=== PATIENT | male | born 1970 | race Caucasian/White ===

== ENCOUNTER 2018-09-03 13:40 | Inpatient (IN) ==
[2018-09-03] MEDS ORDERED: ALBUTEROL/IPRATROPIUM 3 ML NEB RESP TX STA (14:34)
[2018-09-03] MEDS ORDERED: FUROSEMIDE 40 MG/4 ML VIAL IV STA (14:34)
[2018-09-03 15:27] LABS: Albumin 3.8 G/DL (3.4-5.0); Bilirubin,Total 0.5 MG/DL (0.2-1.0); Calcium 8.8 MG/DL (8.5-10.1); Osmolality,Calculated 281.1 MOS/KG (273-304); Total Protein 6.9 G/DL (6.4-8.3)
[2018-09-03 15:46] LABS: Apearance,Urine CLEAR (Clear); Bilirubin,Urine Negative (Negative); Blood, Urine Negative (Negative); Glucose,Urine (UA) Negative (Negative); Ketones,Urine Negative (Negative); Mucus,Urine Occasional /LPF (Occasional); Nitrite,Urine Negative (Negative); Protein,Urine Negative; RBC,Urine <1 /HPF (0-4); Urine Color Straw (Yellow); Urine Specific Gravity 1.009 (1.001-1.035); Urine Urobilinogen < 2.0 EU/DL (0.2-1.0)
[2018-09-03 16:03] LABS: Basophils # 0.1 10*3/uL (0.0-0.2); Eosinophils # 0.2 10*3/uL (0.0-0.87); Eosinophils % 2.1 % (0.00-10.9); Hematocrit 42.7 VOL% (42.0-52.0); Hemoglobin 13.4 GM/DL (14.0-18.0); Immature Granulocytes % 0.3 %; Immature Granulocytes Absolute 0.02 #; Lymphocytes # 2.2 10*3/uL (1.4-4.0); Lymphocytes % 28.4 % (21.2-54.2); Mean Corpuscular HGB Conc 31.4 GM/DL (32-36); Mean Corpuscular Volume 90.1 FL (87-102); Mean Platelet Volume 12.6 FL (9.6-12.0); Monocytes % 7.5 % (1.7-12.7); Neutrophils % 60.7 % (38.7-73.9); Platelet Count 236 T/CUMM (130-400); Red Blood Count 4.74 MC/CUMM (3.8-5.5); Red Cell Distribution Width 15.1 % (9.3-17.3); White Blood Count 7.8 T/CUMM (4-12)
[2018-09-03] MEDS ORDERED: PROMETHAZINE 25 MG TABLET PO PRN (16:55)
[2018-09-03] MEDS ORDERED: MORPHINE 4 MG/1 ML VIAL IV PRN (16:55)
[2018-09-03] MEDS ORDERED: MAGNESIUM SULF RIDER 4 GM in PREMIX 1 EACH IV PRN (16:55)
[2018-09-03] MEDS ORDERED: ZALEPLON 5 MG CAPSULE PO PRN (16:55)
[2018-09-03] MEDS ORDERED: LACTULOSE 20 GM/30 ML UDCUP PO PRN (16:55)
[2018-09-03] MEDS ORDERED: NICOTINE 21 MG/24 HR PATCH TRANSDERM PRN (16:55)
[2018-09-03] MEDS ORDERED: guaiFENesin/DM ER 600-30 MG TABLET PO PRN (16:55)
[2018-09-03] MEDS ORDERED: diphenhydrAMINE CAP 25 MG CAPSULE PO PRN (16:55)
[2018-09-03] MEDS ORDERED: DOCUSATE SODIUM 100 MG CAPSULE PO PRN (16:55)
[2018-09-03] MEDS ORDERED: ONDANSETRON 4 MG/2 ML VIAL IV PRN (16:55)
[2018-09-03] MEDS ORDERED: ACETAMINOPHEN 325 MG TABLET PO PRN (16:55)
[2018-09-03] MEDS ORDERED: MAGNESIUM SULF RIDER 2 GM in PREMIX 1 EACH IV PRN ×2 (16:55→17:25)
[2018-09-03] MEDS ORDERED: ENOXAPARIN 40 MG/0.4 ML SYRINGE SUBCUT SCH (17:00)
[2018-09-03] MEDS ORDERED: diphenhydrAMINE CAP 25 MG CAPSULE PO ONE (17:25)
[2018-09-03] MEDS ORDERED: DIAZEPAM 5 MG TABLET PO ONE (17:25)
[2018-09-03] MEDS ORDERED: POTASSIUM CHLORIDE RIDER 10 MEQ in PREMIX 1 EACH IV PRN (17:25)
[2018-09-03 19:12] LABS: Apearance,Urine CLEAR (Clear); Bilirubin,Urine Negative (Negative); Blood, Urine Negative (Negative); Glucose,Urine (UA) Negative (Negative); Hyaline Casts,Urine 1 /LPF (0-3); Ketones,Urine Negative (Negative); Mucus,Urine Occasional /LPF (Occasional); Nitrite,Urine Negative (Negative); Protein,Urine Negative; RBC,Urine <1 /HPF (0-4); Urine Color Straw (Yellow); Urine Specific Gravity 1.006 (1.001-1.035); Urine Urobilinogen < 2.0 EU/DL (0.2-1.0)
[2018-09-03 19:19] LABS: Barbiturates Screen,Urine Negative (Negative); Benzodiazepines Screen,Urine Negative (Negative); Cannabinoid Screen,Urine Negative (Negative); Opiate Screen,Urine Negative (Negative); Phencyclidine Screen,Urine Negative (Negative)
[2018-09-03] MEDS: CARVEDILOL 3.125 MG TABLET PO SCH (21:02)
[2018-09-04 05:41] LABS: Basophils # 0.1 10*3/uL (0.0-0.2); Eosinophils # 0.2 10*3/uL (0.0-0.87); Eosinophils % 2.7 % (0.00-10.9); Hemoglobin 13.5 GM/DL (14.0-18.0); Immature Granulocytes % 0.3 %; Immature Granulocytes Absolute 0.02 #; Lymphocytes # 1.7 10*3/uL (1.4-4.0); Lymphocytes % 24.7 % (21.2-54.2); Mean Corpuscular HGB Conc 32.1 GM/DL (32-36); Mean Corpuscular Volume 88.8 FL (87-102); Mean Platelet Volume 12.2 FL (9.6-12.0); Monocytes % 7.7 % (1.7-12.7); Neutrophils % 63.6 % (38.7-73.9); Platelet Count 236 T/CUMM (130-400); Red Blood Count 4.73 MC/CUMM (3.8-5.5); Red Cell Distribution Width 15.1 % (9.3-17.3)
[2018-09-04] MEDS: SODIUM CHLORIDE 0.9% 1,000 ML IV SCH ×2 (06:12→15:14)
[2018-09-04 06:15] LABS: Osmolality,Calculated 282.3 MOS/KG (273-304); Risk Ratio 8.04; VLDL CHOLESTEROL 44.2 MG/DL
[2018-09-04 06:32] LABS: Troponin I < 0.015 NG/ML (0.00-0.045)
[2018-09-04] MEDS ORDERED: NITROGLYCERIN DRIP 50 MG/250 ML BOTTLE IV ONE (06:45)
[2018-09-04] MEDS ORDERED: LIDOCAINE 1% 20 ML VIAL ONE (06:45)
[2018-09-04] MEDS ORDERED: DIAZEPAM 5 MG TABLET PO ONE (06:45)
[2018-09-04] MEDS ORDERED: HEPARIN/NACL 0.9% 2 UNITS/ML 1,000 ML IV ONE (06:45)
[2018-09-04] MEDS ORDERED: VERAPAMIL 5 MG/2 ML VIAL ONE (06:45)
[2018-09-04] MEDS ORDERED: diphenhydrAMINE CAP 25 MG CAPSULE PO ONE (06:45)
[2018-09-04] MEDS: CARVEDILOL 3.125 MG TABLET PO SCH ×3 (06:46→20:51)
[2018-09-04] MEDS ORDERED: MIDAZOLAM 2 MG/2 ML VIAL ONE ×2 (07:19→08:03)
[2018-09-04] MEDS ORDERED: fentaNYL 100 MCG/2 ML VIAL ONE (07:19)
[2018-09-04] MEDS ORDERED: ASPIRIN CHEW 81 MG TABLET PO ONE (07:28)
[2018-09-04] MEDS ORDERED: ENOXAPARIN 60 MG/0.6 ML SYRINGE ONE (07:32)
[2018-09-04] MEDS: SPIRONOLACTONE 25 MG TABLET PO SCH (10:46)
[2018-09-04] MEDS: ASPIRIN EC 81 MG TABLET PO SCH (10:48)
[2018-09-04] MEDS: PANTOPRAZOLE 40 MG TABLET PO SCH (10:49)
[2018-09-04] MEDS: ASCORBIC ACID 500 MG TABLET PO SCH (20:51)
[2018-09-04] MEDS: FUROSEMIDE 40 MG/4 ML VIAL IV SCH (20:52)
[2018-09-05 04:54] LABS: Basophils # 0.1 10*3/uL (0.0-0.2); Basophils % 0.7 % (0.0-0.8); Eosinophils # 0.2 10*3/uL (0.0-0.87); Eosinophils % 2.7 % (0.00-10.9); Hematocrit 38.3 VOL% (42.0-52.0); Hemoglobin 12.3 GM/DL (14.0-18.0); Immature Granulocytes % 0.6 %; Immature Granulocytes Absolute 0.04 #; Lymphocytes # 1.7 10*3/uL (1.4-4.0); Lymphocytes % 23.8 % (21.2-54.2); Mean Corpuscular HGB Conc 32.1 GM/DL (32-36); Mean Corpuscular Volume 89.9 FL (87-102); Mean Platelet Volume 12.4 FL (9.6-12.0); Monocytes % 10.4 % (1.7-12.7); Neutrophils % 61.8 % (38.7-73.9); Platelet Count 206 T/CUMM (130-400); Red Blood Count 4.26 MC/CUMM (3.8-5.5); Red Cell Distribution Width 15.1 % (9.3-17.3); White Blood Count 7.1 T/CUMM (4-12)
[2018-09-05 05:22] LABS: Calcium 8.8 MG/DL (8.5-10.1); Osmolality,Calculated 285.1 MOS/KG (273-304)
[2018-09-05] MEDS: SACUBITRIL/VALSARTAN 49-51 MG TABLET PO SCH ×2 (08:52→21:07)
[2018-09-05] MEDS: POTASSIUM CHLORIDE 20 MEQ TABLET PO PRN ×2 (08:52→13:45)
[2018-09-05] MEDS: PANTOPRAZOLE 40 MG TABLET PO SCH (08:53)
[2018-09-05] MEDS: SPIRONOLACTONE 25 MG TABLET PO SCH (08:53)
[2018-09-05] MEDS: CARVEDILOL 3.125 MG TABLET PO SCH ×2 (08:53→21:06)
[2018-09-05] MEDS: ASPIRIN EC 81 MG TABLET PO SCH (08:53)
[2018-09-05] MEDS: ASCORBIC ACID 500 MG TABLET PO SCH ×2 (08:53→21:07)
[2018-09-05] MEDS: FUROSEMIDE 40 MG/4 ML VIAL IV SCH ×2 (08:53→16:22)
[2018-09-05 10:57] LABS: Basophils # 0.1 10*3/uL (0.0-0.2); Basophils % 0.9 % (0.0-0.8); Eosinophils # 0.2 10*3/uL (0.0-0.87); Eosinophils % 2.2 % (0.00-10.9); Hematocrit 40.7 VOL% (42.0-52.0); Hemoglobin 12.9 GM/DL (14.0-18.0); Immature Granulocytes % 0.4 %; Immature Granulocytes Absolute 0.03 #; Lymphocytes # 1.4 10*3/uL (1.4-4.0); Lymphocytes % 19.4 % (21.2-54.2); Mean Corpuscular HGB Conc 31.7 GM/DL (32-36); Mean Corpuscular Volume 89.1 FL (87-102); Mean Platelet Volume 11.3 FL (9.6-12.0); Monocytes % 8.8 % (1.7-12.7); Neutrophils % 68.3 % (38.7-73.9); Platelet Count 219 T/CUMM (130-400); Red Blood Count 4.57 MC/CUMM (3.8-5.5); Red Cell Distribution Width 14.9 % (9.3-17.3); White Blood Count 7.4 T/CUMM (4-12)
[2018-09-05] MEDS ORDERED: ALBUTEROL/IPRATROPIUM 3 ML NEB RESP TX PRN (11:06)
[2018-09-05 11:25] LABS: Calcium 9.3 MG/DL (8.5-10.1); Osmolality,Calculated 280.5 MOS/KG (273-304)
[2018-09-05] MEDS: BUDESONIDE/FORMOTEROL 80-4.5 INHALER 6.9 GM INH SCH (21:07)
[2018-09-06 06:23] LABS: Basophils # 0.1 10*3/uL (0.0-0.2); Basophils % 1.3 % (0.0-0.8); Eosinophils # 0.2 10*3/uL (0.0-0.87); Eosinophils % 2.8 % (0.00-10.9); Hematocrit 41.6 VOL% (42.0-52.0); Hemoglobin 13.5 GM/DL (14.0-18.0); Immature Granulocytes % 0.3 %; Immature Granulocytes Absolute 0.02 #; Lymphocytes # 1.9 10*3/uL (1.4-4.0); Lymphocytes % 28.2 % (21.2-54.2); Mean Corpuscular HGB Conc 32.5 GM/DL (32-36); Mean Corpuscular Volume 88.3 FL (87-102); Monocytes % 8.9 % (1.7-12.7); Neutrophils % 58.5 % (38.7-73.9); Platelet Count 224 T/CUMM (130-400); Red Blood Count 4.71 MC/CUMM (3.8-5.5); Red Cell Distribution Width 14.7 % (9.3-17.3); White Blood Count 6.8 T/CUMM (4-12)
[2018-09-06 06:45] LABS: Calcium 9.1 MG/DL (8.5-10.1); Osmolality,Calculated 284.3 MOS/KG (273-304)
[2018-09-06] MEDS ORDERED: ISOSORBIDE MONONITRATE 30 MG TABLET PO SCH (09:00)
[2018-09-06] MEDS: POTASSIUM CHLORIDE 20 MEQ TABLET PO PRN (09:08)
[2018-09-06] MEDS: ASPIRIN EC 81 MG TABLET PO SCH (09:08)
[2018-09-06] MEDS: SPIRONOLACTONE 25 MG TABLET PO SCH (09:09)
[2018-09-06] MEDS: ASCORBIC ACID 500 MG TABLET PO SCH (09:09)
[2018-09-06] MEDS: PANTOPRAZOLE 40 MG TABLET PO SCH (09:09)
[2018-09-06] MEDS: CARVEDILOL 3.125 MG TABLET PO SCH (09:09)
[2018-09-06] MEDS: SACUBITRIL/VALSARTAN 49-51 MG TABLET PO SCH (09:10)
[2018-09-06] MEDS: BUDESONIDE/FORMOTEROL 80-4.5 INHALER 6.9 GM INH SCH (09:17)
[2018-09-06] MEDS: FUROSEMIDE 40 MG/4 ML VIAL IV SCH (09:17)
[2018-09-06 12:05] VITALS: BP 88/46
[2018-09-06] MEDS ORDERED: FUROSEMIDE 40 MG TABLET PO SCH (16:00)
== END 2018-09-06 15:16 | disposition home or self-care, planned readmission (81) | DRG 287 ==
LOC: N.ED 13:40 → N.EDINP 16:55 → N.TELEN 17:31
PROVIDERS: ADMIT Internal Medicine Cardiovascular Disease; ATTEND Internal Medicine Cardiovascular Disease

== ENCOUNTER 2018-09-10 05:15 | Inpatient (IN) ==
[2018-09-09 13:16] LABS: Basophils # 0.1 10*3/uL (0.0-0.2); Basophils % 1.3 % (0.0-0.8); Eosinophils # 0.2 10*3/uL (0.0-0.87); Eosinophils % 2.7 % (0.00-10.9); Hematocrit 42.3 VOL% (42.0-52.0); Hemoglobin 13.5 GM/DL (14.0-18.0); Immature Granulocytes Absolute 0.08 #; Mean Corpuscular HGB Conc 31.9 GM/DL (32-36); Mean Corpuscular Volume 88.9 FL (87-102); Mean Platelet Volume 11.4 FL (9.6-12.0); Monocytes % 10.3 % (1.7-12.7); Neutrophils % 58.7 % (38.7-73.9); Platelet Count 235 T/CUMM (130-400); Red Blood Count 4.76 MC/CUMM (3.8-5.5); Red Cell Distribution Width 14.6 % (9.3-17.3); White Blood Count 7.8 T/CUMM (4-12)
[2018-09-09 13:20] LABS: Apearance,Urine CLEAR (Clear); Bilirubin,Urine Negative (Negative); Blood, Urine Negative (Negative); Glucose,Urine (UA) Negative (Negative); Hyaline Casts,Urine 14 /LPF (0-3); Ketones,Urine Negative (Negative); Mucus,Urine Occasional /LPF (Occasional); Nitrite,Urine Negative (Negative); Protein,Urine Negative; RBC,Urine <1 /HPF (0-4); Urine Color Yellow (Yellow); Urine Specific Gravity 1.013 (1.001-1.035); Urine Urobilinogen < 2.0 EU/DL (0.2-1.0); WBC,Urine <1 /HPF (0-6)
[2018-09-09 13:26] LABS: Calcium 8.9 MG/DL (8.5-10.1); Osmolality,Calculated 279.7 MOS/KG (273-304)
[2018-09-09 13:37] LABS: INR 0.9; Partial Thromboplastin Time 23.4 SECS (0-40)
[~2018-09-10 05:15] MED LIST: PAPAVERINE 60 MG/2 ML VIAL ONE; SODIUM CHLORIDE 0.9% 1,000 ML IV PRN; TISSUE ADHESIVE 1 EACH APPLICATOR TOP ONE; VANCOMYCIN 1,000 MG VIAL ONE
[2018-09-10] MEDS ORDERED: DIAZEPAM 5 MG TABLET PO ONE (05:25)
[2018-09-10] MEDS ORDERED: CALCIUM CHLORIDE 1,000 MG/10 ML VIAL IV ONE (05:36)
[2018-09-10] MEDS ORDERED: MIDAZOLAM 10 MG/2 ML VIAL ONE (05:37)
[2018-09-10] MEDS ORDERED: PHENYLEPHRINE DRIP 20 MG/250 ML PREMIX IV ONE (05:37)
[2018-09-10] MEDS ORDERED: HEPARIN/NACL 0.9% 2 UNITS/ML 500 ML IV ONE (05:37)
[2018-09-10] MEDS ORDERED: ePHEDrine 50 MG/ML AMP ONE (05:37)
[2018-09-10] MEDS ORDERED: VECURONIUM 10 MG VIAL IV ONE (05:37)
[2018-09-10] MEDS ORDERED: SUFentanil 250 MCG/5 ML AMP ONE (05:37)
[2018-09-10] MEDS ORDERED: NITROGLYCERIN DRIP 50 MG/250 ML BOTTLE IV ONE (05:38)
[2018-09-10] MEDS ORDERED: SODIUM CHLORIDE 0.9% 1,000 ML IV ONE (05:38)
[2018-09-10] MEDS ORDERED: LACTATED RINGERS 1,000 ML IV ONE (05:38)
[2018-09-10] MEDS ORDERED: DEXMEDETOMIDINE 200 MCG/2 ML VIAL IV ONE (05:38)
[2018-09-10] MEDS ORDERED: SODIUM CHLORIDE 0.9% 250 ML IV ONE (05:38)
[2018-09-10] MEDS ORDERED: AMINOCAPROIC ACID 5,000 MG/20 ML VIAL ONE (05:38)
[2018-09-10] MEDS ORDERED: SODIUM CHLORIDE 0.9% 100 ML IV ONE (05:38)
[2018-09-10] MEDS ORDERED: ETOMIDATE 40 MG/20 ML VIAL IV ONE (05:38)
[2018-09-10] MEDS ORDERED: CEFUROXIME 1,500 MG VIAL ONE (05:55)
[2018-09-10] MEDS ORDERED: CEFUROXIME INJ 1,500 MG in SYRINGE 1 EACH IV ONE (06:00)
[2018-09-10] MEDS ORDERED: ALBUTEROL/IPRATROPIUM 3 ML NEB RESP TX ONE (06:25)
[2018-09-10] MEDS ORDERED: DIAZEPAM 5 MG TABLET ONE (06:26)
[2018-09-10] MEDS ORDERED: LACTATED RINGERS 1,000 ML IV SCH (06:30)
[2018-09-10 07:45] LABS: ABG Base Excess 1.7 MMOL/L (-2.5-2.5); ABG HCO3 25.9 MMOL/L (20-26); ABG Oxygen Saturation 99.1 % (95-100); ABG PCO2 41.9 MM HG (35-48); ABG TCO2 23.1 MMOL/L (23-27); Glucose Heart Surgery 129 MG/DL (74-106); Hematocrit Heart Surgery 41.1 PERCENT (42-52); Hemoglobin Heart Surgery 13.4 G/DL (14.0-18.0); Ionized Calcium Arterial 1.16 MMOL/L (1.21-1.46); PCO2 Patient Temp Arterial 41.9 MMHG; Patient Temperature 37 CELCIUS; Potassium Heart/CVR 4.1 MMOL/L (3.5-5.1); Sodium Heart/CVR 138 MMOL/L (135-145)
[2018-09-10 07:58] LABS: Apearance,Urine CLEAR (Clear); Bilirubin,Urine Negative (Negative); Blood, Urine Negative (Negative); Glucose,Urine (UA) Negative (Negative); Ketones,Urine Negative (Negative); Nitrite,Urine Negative (Negative); Protein,Urine Negative; RBC,Urine 1 /HPF (0-4); Urine Color Yellow (Yellow); Urine Urobilinogen < 2.0 EU/DL (0.2-1.0)
[2018-09-10 09:08] LABS: Hematocrit Heart Surgery 31.1 PERCENT (42-52); Hemoglobin Heart Surgery 10.1 G/DL (14.0-18.0); PCO2 Patient Temp Venous 37.4 MM HG; PH Patient Temp Venous 7.453; PO2 Patient Temp Venous 37.6 MM HG; Potassium Heart/CVR 5.1 MMOL/L (3.5-5.1); VBG Base Excess 2.4 MEQ/L (0-4); VBG HCO3 26.2 MEQ/L (24-28); VBG Oxygen Saturation 79.1 %; VBG PCO2 41.2 MMHG (41-51); VBG PH 7.424; VBG PO2 43.2 MMHG (17-40)
[2018-09-10] MEDS ORDERED: CALCIUM CHLORIDE 1,000 MG/10 ML SYRINGE IV ONE (09:38)
[2018-09-10] MEDS ORDERED: THROMBIN TOPICAL (RECOMBINANT) 5,000 UNIT VIAL TOP ONE (09:51)
[2018-09-10] MEDS ORDERED: ALBUTEROL INHALER 8 GM INH ONE (09:54)
[2018-09-10] MEDS ORDERED: ALBUTEROL 2.5 MG/3 ML NEB RESP TX ONE (09:54)
[2018-09-10 10:10] LABS: ABG Base Excess -0.4 MMOL/L (-2.5-2.5); ABG Oxygen Saturation 92.6 % (95-100); ABG PH 7.366 (7.35-7.45); ABG PO2 67.9 MM HG (80-95); ABG TCO2 22.4 MMOL/L (23-27); Glucose Heart Surgery 248 MG/DL (74-106); Hematocrit Heart Surgery 37.2 PERCENT (42-52); Hemoglobin Heart Surgery 12.1 G/DL (14.0-18.0); Ionized Calcium Arterial 1.14 MMOL/L (1.21-1.46); PH Patient Temp Arterial 7.366; PO2 Patient Temp Arterial 67.9 MM HG; Patient Temperature 37 CELCIUS; Potassium Heart/CVR 4.9 MMOL/L (3.5-5.1); Sodium Heart/CVR 132 MMOL/L (135-145)
[2018-09-10] MEDS ORDERED: SODIUM BICARBONATE 50 MEQ/50 ML VIAL IV ONE (10:12)
[2018-09-10] MEDS ORDERED: MANNITOL 100 GM/500 ML BAG IV ONE (10:12)
[2018-09-10] MEDS ORDERED: PROTAMINE SULFATE 250 MG/25 ML VIAL IV ONE (10:12)
[2018-09-10] MEDS ORDERED: ALBUMIN 25% 25 GM/100 ML VIAL IV ONE (10:12)
[2018-09-10] MEDS ORDERED: MAGNESIUM SULFATE 5 GM/10 ML VIAL IV ONE (10:12)
[2018-09-10] MEDS ORDERED: DEXTROSE 5% KCL 20 MEQ 20 MEQ/1,000 ML BAG IV ONE (10:12)
[2018-09-10] MEDS ORDERED: methylPREDNISolone SOD SUC 1,000 MG/8 ML VIAL ONE (10:13)
[2018-09-10] MEDS ORDERED: FUROSEMIDE 20 MG/2 ML VIAL ONE (10:13)
[2018-09-10] MEDS ORDERED: HEPARIN 10,000 UNIT/10 ML VIAL ONE (10:13)
[2018-09-10] MEDS ORDERED: MAGNESIUM SULF RIDER 2 GM in PREMIX 1 EACH IV PRN (10:50)
[2018-09-10] MEDS ORDERED: CHLORHEXIDINE 4% SOLN 118 ML BOTTLE TOP PRN (10:50)
[2018-09-10] MEDS ORDERED: MIDAZOLAM 2 MG/2 ML VIAL IV PRN (10:50)
[2018-09-10] MEDS ORDERED: MAGNESIUM SULF RIDER 4 GM in PREMIX 1 EACH IV PRN (10:50)
[2018-09-10] MEDS ORDERED: ONDANSETRON 4 MG/2 ML VIAL IV PRN (10:50)
[2018-09-10] MEDS ORDERED: ACETAMINOPHEN 650 MG SUPP RECTAL PRN (10:50)
[2018-09-10] MEDS ORDERED: DEXTROSE 50% 25 GM/50 ML VIAL IV PRN ×2 (10:50)
[2018-09-10] MEDS ORDERED: SODIUM CHLORIDE 0.9% 250 ML IV PRN (10:50)
[2018-09-10] MEDS ORDERED: CALCIUM CHLORIDE 1,000 MG/10 ML SYRINGE IV PRN (10:50)
[2018-09-10] MEDS ORDERED: INSULIN REGULAR DRIP 100 ML IV SCH (11:00)
[2018-09-10] MEDS ORDERED: SEVOFLURANE 1 UNIT/15 MINUTE INH ONE (11:18)
[2018-09-10 11:32] LABS: ABG Base Excess -0.5 MMOL/L (-2.5-2.5); ABG HCO3 23.8 MMOL/L (20-26); ABG Oxygen Saturation 88.5 % (95-100); ABG PCO2 40.2 MM HG (35-48); ABG PH 7.391 (7.35-7.45); ABG PO2 57.1 MM HG (80-95); ABG TCO2 21.4 MMOL/L (23-27); Glucose Heart Surgery 197 MG/DL (74-106); Hematocrit Heart Surgery 39.4 PERCENT (42-52); Hemoglobin Heart Surgery 12.8 G/DL (14.0-18.0); Potassium Heart/CVR 3.8 MMOL/L (3.5-5.1)
[2018-09-10 11:36] LABS: Basophils # 0.1 10*3/uL (0.0-0.2); Basophils % 0.6 % (0.0-0.8); Eosinophils # 0.1 10*3/uL (0.0-0.87); Eosinophils % 0.8 % (0.00-10.9); Hematocrit 37.8 VOL% (42.0-52.0); Hemoglobin 12.2 GM/DL (14.0-18.0); Immature Granulocytes % 1.2 %; Immature Granulocytes Absolute 0.13 #; Lymphocytes % 9.8 % (21.2-54.2); Mean Corpuscular HGB Conc 32.3 GM/DL (32-36); Mean Corpuscular Volume 88.9 FL (87-102); Mean Platelet Volume 11.8 FL (9.6-12.0); Monocytes % 6.4 % (1.7-12.7); Neutrophils % 81.2 % (38.7-73.9); Platelet Count 176 T/CUMM (130-400); Red Blood Count 4.25 MC/CUMM (3.8-5.5); Red Cell Distribution Width 14.5 % (9.3-17.3); White Blood Count 10.4 T/CUMM (4-12)
[2018-09-10 11:42] LABS: VBG Base Excess -0.3 MEQ/L (0-4); VBG Oxygen Saturation 89.5 %; VBG PCO2 42.2 MMHG (41-51); VBG PH 7.379; VBG PO2 59.7 MMHG (17-40)
[2018-09-10 11:43] LABS: PT Patient Result 10.8 SECS; Partial Thromboplastin Time 22.6 SECS (0-40)
[2018-09-10] MEDS: ALBUMIN 5% 12.5 GM in PREMIX 1 EACH IV PRN ×2 (11:53→12:09)
[2018-09-10 11:56] LABS: Blood Urea Nitrogen 23 MG/DL (7-18); Calcium 9.7 MG/DL (8.5-10.1); Glucose 189 MG/DL (74-106); Osmolality,Calculated 278.1 MOS/KG (273-304)
[2018-09-10] MEDS: SODIUM CHLORIDE 0.45% 1,000 ML IV SCH ×2 (12:09)
[2018-09-10] MEDS: methylPREDNISolone SOD SUC 40 MG/1 ML VIAL IV SCH ×2 (12:14→21:10)
[2018-09-10] MEDS: POTASSIUM CHLORIDE RIDER 20 MEQ in PREMIX 1 EACH IV PRN (12:24)
[2018-09-10] MEDS ORDERED: PHENYLEPHRINE DRIP 40 MG/250 ML PREMIX IV ONE (12:47)
[2018-09-10] MEDS ORDERED: PHENYLEPHRINE DRIP 40 MG/250 ML PREMIX IV PRN (12:53)
[2018-09-10] MEDS: POTASSIUM CHLORIDE RIDER 10 MEQ in PREMIX 1 EACH IV PRN (13:01)
[2018-09-10] MEDS ORDERED: ASPIRIN 325 MG TABLET PO ONE (16:11)
[2018-09-10] MEDS: MORPHINE 10 MG/1 ML VIAL IV PRN ×2 (16:49→18:41)
[2018-09-10 18:05] LABS: ABG Base Excess -3.5 MMOL/L (-2.5-2.5); ABG HCO3 21.4 MMOL/L (20-26); ABG Oxygen Saturation 93.8 % (95-100); ABG PCO2 39.8 MM HG (35-48); ABG PH 7.347 (7.35-7.45); ABG PO2 75.9 MM HG (80-95); ABG TCO2 19.1 MMOL/L (23-27)
[2018-09-10] MEDS: INSULIN REGULAR 100 UNIT/ML IV PRN ×2 (18:38→20:12)
[2018-09-10] MEDS: ALBUTEROL/IPRATROPIUM 3 ML NEB RESP TX SCH (18:56)
[2018-09-10] MEDS: CEFUROXIME INJ 1,500 MG in SYRINGE 1 EACH IV SCH (19:05)
[2018-09-10] MEDS: CHLORHEXIDINE 0.12% ORAL RINSE 60 ML BOTTLE SWISH/SPIT SCH (20:36)
[2018-09-10] MEDS: MORPHINE 4 MG/1 ML VIAL IV PRN ×2 (21:11→23:53)
[2018-09-11] MEDS: ALBUTEROL/IPRATROPIUM 3 ML NEB RESP TX SCH ×4 (00:25→19:07)
[2018-09-11] MEDS: SODIUM CHLORIDE 0.45% 1,000 ML IV SCH ×2 (00:30→06:51)
[2018-09-11] MEDS: MORPHINE 4 MG/1 ML VIAL IV PRN ×3 (02:00→09:40)
[2018-09-11] MEDS: INSULIN REGULAR 100 UNIT/ML IV PRN (02:12)
[2018-09-11] MEDS: methylPREDNISolone SOD SUC 40 MG/1 ML VIAL IV SCH ×3 (03:22→20:18)
[2018-09-11 03:44] LABS: Basophils % 0.1 % (0.0-0.8); Hematocrit 39.6 VOL% (42.0-52.0); Hemoglobin 12.5 GM/DL (14.0-18.0); Immature Granulocytes % 0.5 %; Immature Granulocytes Absolute 0.07 #; Lymphocytes # 0.8 10*3/uL (1.4-4.0); Lymphocytes % 5.3 % (21.2-54.2); Mean Corpuscular HGB Conc 31.6 GM/DL (32-36); Mean Corpuscular Volume 88.6 FL (87-102); Mean Platelet Volume 11.5 FL (9.6-12.0); Monocytes % 5.1 % (1.7-12.7); Platelet Count 194 T/CUMM (130-400); Red Blood Count 4.47 MC/CUMM (3.8-5.5); Red Cell Distribution Width 14.6 % (9.3-17.3); White Blood Count 14.6 T/CUMM (4-12)
[2018-09-11 04:04] LABS: Calcium 8.6 MG/DL (8.5-10.1); Osmolality,Calculated 280.7 MOS/KG (273-304)
[2018-09-11] MEDS: POTASSIUM CHLORIDE RIDER 20 MEQ in PREMIX 1 EACH IV PRN (04:46)
[2018-09-11] MEDS: CEFUROXIME INJ 1,500 MG in SYRINGE 1 EACH IV SCH ×2 (05:54→18:01)
[2018-09-11] MEDS ORDERED: FUROSEMIDE 40 MG/4 ML VIAL IV ONE (07:20)
[2018-09-11] MEDS: FUROSEMIDE 40 MG TABLET PO SCH (08:01)
[2018-09-11] MEDS: ASPIRIN EC 325 MG TABLET PO SCH (08:01)
[2018-09-11] MEDS: METOPROLOL TARTRATE 25 MG TABLET PO SCH ×2 (08:01→20:17)
[2018-09-11] MEDS: CLOPIDOGREL 75 MG TABLET PO SCH (08:01)
[2018-09-11] MEDS: PANTOPRAZOLE 40 MG VIAL IV SCH (08:01)
[2018-09-11] MEDS: CHLORHEXIDINE 0.12% ORAL RINSE 60 ML BOTTLE SWISH/SPIT SCH ×2 (08:02→20:26)
[2018-09-11] MEDS ORDERED: INSULIN GLARGINE 100 UNIT/ML SUBCUT SCH (09:30)
[2018-09-11] MEDS: MORPHINE 10 MG/1 ML VIAL IV PRN ×6 (11:22→23:39)
[2018-09-11] MEDS ORDERED: DEXTROSE 50% 25 GM/50 ML VIAL IV PRN (16:33)
[2018-09-11] MEDS ORDERED: GLUCAGON 1 MG VIAL IM PRN (16:33)
[2018-09-11] MEDS: INSULIN LISPRO 100 UNIT/ML SUBCUT SCH ×2 (18:01→21:47)
[2018-09-11] MEDS ORDERED: ATORVASTATIN 40 MG TABLET PO SCH (21:00)
[2018-09-12] MEDS: ALBUTEROL/IPRATROPIUM 3 ML NEB RESP TX SCH ×4 (00:50→19:35)
[2018-09-12] MEDS: INSULIN LISPRO 100 UNIT/ML SUBCUT SCH ×6 (01:15→22:05)
[2018-09-12] MEDS: MORPHINE 10 MG/1 ML VIAL IV PRN ×4 (02:08→19:22)
[2018-09-12 03:27] LABS: Basophils % 0.1 % (0.0-0.8); Hemoglobin 12.3 GM/DL (14.0-18.0); Immature Granulocytes % 0.6 %; Immature Granulocytes Absolute 0.11 #; Lymphocytes # 0.7 10*3/uL (1.4-4.0); Lymphocytes % 3.9 % (21.2-54.2); Mean Corpuscular HGB Conc 31.5 GM/DL (32-36); Mean Corpuscular Volume 90.9 FL (87-102); Mean Platelet Volume 12.8 FL (9.6-12.0); Monocytes % 10.2 % (1.7-12.7); Neutrophils % 85.2 % (38.7-73.9); Platelet Count 221 T/CUMM (130-400); Red Blood Count 4.29 MC/CUMM (3.8-5.5); Red Cell Distribution Width 15.2 % (9.3-17.3); White Blood Count 17.2 T/CUMM (4-12)
[2018-09-12 03:57] LABS: Band Neutrophils 1 % (0-10); Hypochromasia Slight; Lymphocytes 3 % (20-55); Platelet Estimate Adequate; Segmented Neutrophils 86 % (50-85); Total Cells Counted 100
[2018-09-12] MEDS ORDERED: METOPROLOL TARTRATE 25 MG TABLET PO SCH (06:25)
[2018-09-12] MEDS ORDERED: INSULIN GLARGINE 100 UNIT/ML SUBCUT SCH (08:59)
[2018-09-12] MEDS ORDERED: NON-FORMULARY MEDICATION (Fluticasone Propion-Salmeterol [Advair Hfa] 2 PUFF) INH SCH (09:00)
[2018-09-12] MEDS: PANTOPRAZOLE 40 MG VIAL IV SCH (09:01)
[2018-09-12] MEDS: CLOPIDOGREL 75 MG TABLET PO SCH (09:02)
[2018-09-12] MEDS: SACUBITRIL/VALSARTAN 49-51 MG TABLET PO SCH ×2 (09:02→20:26)
[2018-09-12] MEDS: NICOTINE 21 MG/24 HR PATCH TRANSDERM SCH (09:02)
[2018-09-12] MEDS: CARVEDILOL 3.125 MG TABLET PO SCH ×2 (09:02→20:26)
[2018-09-12] MEDS: FUROSEMIDE 40 MG TABLET PO SCH (09:03)
[2018-09-12] MEDS: ASPIRIN EC 325 MG TABLET PO SCH (09:04)
[2018-09-12] MEDS: CHLORHEXIDINE 0.12% ORAL RINSE 60 ML BOTTLE SWISH/SPIT SCH ×2 (09:04→20:27)
[2018-09-12] MEDS: methylPREDNISolone SOD SUC 40 MG/1 ML VIAL IV SCH ×2 (09:04→20:26)
[2018-09-12] MEDS ORDERED: FUROSEMIDE 40 MG/4 ML VIAL IV ONE (09:28)
[2018-09-12] MEDS: MORPHINE 4 MG/1 ML VIAL IV PRN ×3 (11:51→22:13)
[2018-09-12] MEDS: ATORVASTATIN 80 MG TABLET PO SCH (20:26)
[2018-09-13] MEDS: ALBUTEROL/IPRATROPIUM 3 ML NEB RESP TX SCH ×4 (00:59→19:28)
[2018-09-13] MEDS: INSULIN LISPRO 100 UNIT/ML SUBCUT SCH ×5 (01:15→20:59)
[2018-09-13] MEDS: MORPHINE 4 MG/1 ML VIAL IV PRN ×2 (01:49→03:53)
[2018-09-13 05:43] LABS: Basophils % 0.1 % (0.0-0.8); Hematocrit 35.3 VOL% (42.0-52.0); Immature Granulocytes % 0.7 %; Immature Granulocytes Absolute 0.09 #; Lymphocytes # 0.8 10*3/uL (1.4-4.0); Lymphocytes % 6.3 % (21.2-54.2); Mean Corpuscular HGB Conc 31.2 GM/DL (32-36); Mean Corpuscular Volume 90.5 FL (87-102); Mean Platelet Volume 11.8 FL (9.6-12.0); Monocytes % 9.3 % (1.7-12.7); Neutrophils % 83.6 % (38.7-73.9); Platelet Count 188 T/CUMM (130-400); Red Cell Distribution Width 14.9 % (9.3-17.3); White Blood Count 12.7 T/CUMM (4-12)
[2018-09-13 05:55] LABS: Calcium 8.8 MG/DL (8.5-10.1)
[2018-09-13] MEDS: MORPHINE 10 MG/1 ML VIAL IV PRN ×2 (05:57→20:56)
[2018-09-13] MEDS: INSULIN GLARGINE 100 UNIT/ML SUBCUT SCH (09:39)
[2018-09-13] MEDS: CARVEDILOL 3.125 MG TABLET PO SCH ×2 (09:40→20:58)
[2018-09-13] MEDS: SACUBITRIL/VALSARTAN 49-51 MG TABLET PO SCH ×2 (09:40→20:58)
[2018-09-13] MEDS: ASPIRIN EC 325 MG TABLET PO SCH (09:43)
[2018-09-13] MEDS: CLOPIDOGREL 75 MG TABLET PO SCH (09:43)
[2018-09-13] MEDS: NICOTINE 21 MG/24 HR PATCH TRANSDERM SCH (09:44)
[2018-09-13] MEDS: FUROSEMIDE 40 MG TABLET PO SCH (09:44)
[2018-09-13] MEDS: PANTOPRAZOLE 40 MG TABLET PO SCH (09:44)
[2018-09-13] MEDS: CHLORHEXIDINE 0.12% ORAL RINSE 60 ML BOTTLE SWISH/SPIT SCH ×2 (09:45→21:01)
[2018-09-13] MEDS: methylPREDNISolone SOD SUC 40 MG/1 ML VIAL IV SCH ×2 (09:45→20:58)
[2018-09-13] MEDS ORDERED: PNEUMOCOCCAL VACCINE (23 VALENT) 0.5 ML VIAL IM ONE (14:11)
[2018-09-13] MEDS: ATORVASTATIN 80 MG TABLET PO SCH (20:58)
[2018-09-14] MEDS: MORPHINE 10 MG/1 ML VIAL IV PRN ×2 (00:10→23:14)
[2018-09-14] MEDS: ALBUTEROL/IPRATROPIUM 3 ML NEB RESP TX SCH ×4 (00:48→18:49)
[2018-09-14 05:13] LABS: Basophils % 0.1 % (0.0-0.8); Hematocrit 36.4 VOL% (42.0-52.0); Hemoglobin 11.8 GM/DL (14.0-18.0); Immature Granulocytes % 0.7 %; Immature Granulocytes Absolute 0.08 #; Lymphocytes # 0.9 10*3/uL (1.4-4.0); Lymphocytes % 7.8 % (21.2-54.2); Mean Corpuscular HGB Conc 32.4 GM/DL (32-36); Mean Corpuscular Volume 88.6 FL (87-102); Mean Platelet Volume 12.9 FL (9.6-12.0); Neutrophils % 84.4 % (38.7-73.9); Platelet Count 242 T/CUMM (130-400); Red Blood Count 4.11 MC/CUMM (3.8-5.5); Red Cell Distribution Width 14.6 % (9.3-17.3); White Blood Count 11.3 T/CUMM (4-12)
[2018-09-14 05:35] LABS: Calcium 8.6 MG/DL (8.5-10.1); Osmolality,Calculated 280.7 MOS/KG (273-304)
[2018-09-14] MEDS ORDERED: FUROSEMIDE 40 MG/4 ML VIAL IM ONE (07:29)
[2018-09-14] MEDS: SACUBITRIL/VALSARTAN 49-51 MG TABLET PO SCH ×2 (09:37→21:03)
[2018-09-14] MEDS: PANTOPRAZOLE 40 MG TABLET PO SCH (09:39)
[2018-09-14] MEDS: CARVEDILOL 3.125 MG TABLET PO SCH ×2 (09:40→21:03)
[2018-09-14] MEDS: ASPIRIN EC 325 MG TABLET PO SCH (09:40)
[2018-09-14] MEDS: FUROSEMIDE 40 MG TABLET PO SCH (09:42)
[2018-09-14] MEDS: NICOTINE 21 MG/24 HR PATCH TRANSDERM SCH (09:42)
[2018-09-14] MEDS: CHLORHEXIDINE 0.12% ORAL RINSE 60 ML BOTTLE SWISH/SPIT SCH ×2 (09:43→21:03)
[2018-09-14] MEDS: CLOPIDOGREL 75 MG TABLET PO SCH (09:43)
[2018-09-14] MEDS: methylPREDNISolone SOD SUC 40 MG/1 ML VIAL IV SCH ×2 (09:45→21:04)
[2018-09-14] MEDS: INSULIN LISPRO 100 UNIT/ML SUBCUT SCH ×4 (09:57→21:04)
[2018-09-14] MEDS: INSULIN GLARGINE 100 UNIT/ML SUBCUT SCH (10:18)
[2018-09-14] MEDS: ATORVASTATIN 80 MG TABLET PO SCH (21:04)
[2018-09-15] MEDS: ALBUTEROL/IPRATROPIUM 3 ML NEB RESP TX SCH ×4 (00:22→19:45)
[2018-09-15 04:37] LABS: Basophils % 0.1 % (0.0-0.8); Hematocrit 37.8 VOL% (42.0-52.0); Hemoglobin 12.3 GM/DL (14.0-18.0); Immature Granulocytes % 1.3 %; Immature Granulocytes Absolute 0.14 #; Lymphocytes # 1.1 10*3/uL (1.4-4.0); Lymphocytes % 10.2 % (21.2-54.2); Mean Corpuscular HGB Conc 32.5 GM/DL (32-36); Mean Corpuscular Volume 88.9 FL (87-102); Mean Platelet Volume 12.2 FL (9.6-12.0); Monocytes % 7.1 % (1.7-12.7); Neutrophils % 81.3 % (38.7-73.9); Platelet Count 282 T/CUMM (130-400); Red Blood Count 4.25 MC/CUMM (3.8-5.5); Red Cell Distribution Width 14.7 % (9.3-17.3); White Blood Count 11.1 T/CUMM (4-12)
[2018-09-15 05:02] LABS: Calcium 8.8 MG/DL (8.5-10.1); Osmolality,Calculated 283.7 MOS/KG (273-304)
[2018-09-15] MEDS: SACUBITRIL/VALSARTAN 49-51 MG TABLET PO SCH ×2 (09:30→21:00)
[2018-09-15] MEDS: FUROSEMIDE 40 MG TABLET PO SCH (09:30)
[2018-09-15] MEDS: CARVEDILOL 3.125 MG TABLET PO SCH ×2 (09:31→20:59)
[2018-09-15] MEDS: CLOPIDOGREL 75 MG TABLET PO SCH (09:31)
[2018-09-15] MEDS: PANTOPRAZOLE 40 MG TABLET PO SCH (09:31)
[2018-09-15] MEDS: NICOTINE 21 MG/24 HR PATCH TRANSDERM SCH (09:31)
[2018-09-15] MEDS: ASPIRIN EC 325 MG TABLET PO SCH (09:31)
[2018-09-15] MEDS: methylPREDNISolone SOD SUC 40 MG/1 ML VIAL IV SCH (09:32)
[2018-09-15] MEDS: INSULIN GLARGINE 100 UNIT/ML SUBCUT SCH (09:40)
[2018-09-15] MEDS: INSULIN LISPRO 100 UNIT/ML SUBCUT SCH ×4 (09:42→21:00)
[2018-09-15] MEDS: CHLORHEXIDINE 0.12% ORAL RINSE 60 ML BOTTLE SWISH/SPIT SCH ×2 (10:25→21:00)
[2018-09-15] MEDS: ATORVASTATIN 80 MG TABLET PO SCH (21:00)
[2018-09-15] MEDS: MORPHINE 10 MG/1 ML VIAL IV PRN (23:56)
[2018-09-16] MEDS: ALBUTEROL/IPRATROPIUM 3 ML NEB RESP TX SCH ×4 (01:29→20:10)
[2018-09-16] MEDS: MORPHINE 10 MG/1 ML VIAL IV PRN ×2 (05:02→09:27)
[2018-09-16 05:11] LABS: Basophils # 0.1 10*3/uL (0.0-0.2); Basophils % 0.4 % (0.0-0.8); Eosinophils # 0.1 10*3/uL (0.0-0.87); Eosinophils % 0.6 % (0.00-10.9); Hematocrit 38.7 VOL% (42.0-52.0); Hemoglobin 12.3 GM/DL (14.0-18.0); Immature Granulocytes % 4.5 %; Immature Granulocytes Absolute 0.56 #; Lymphocytes # 2.7 10*3/uL (1.4-4.0); Lymphocytes % 21.9 % (21.2-54.2); Mean Corpuscular HGB Conc 31.8 GM/DL (32-36); Mean Corpuscular Volume 89.4 FL (87-102); Mean Platelet Volume 12.1 FL (9.6-12.0); Monocytes % 11.7 % (1.7-12.7); Neutrophils % 60.9 % (38.7-73.9); Platelet Count 299 T/CUMM (130-400); Red Blood Count 4.33 MC/CUMM (3.8-5.5); Red Cell Distribution Width 14.6 % (9.3-17.3); White Blood Count 12.4 T/CUMM (4-12)
[2018-09-16 05:25] LABS: Calcium 8.7 MG/DL (8.5-10.1); Osmolality,Calculated 285.1 MOS/KG (273-304)
[2018-09-16 05:40] LABS: Band Neutrophils 1 % (0-10); Eosinophils 4 % (0-10); Hypochromasia 1+; Lymphocytes 15 % (20-55); Platelet Estimate Adequate; Segmented Neutrophils 73 % (50-85); Total Cells Counted 100
[2018-09-16] MEDS: POTASSIUM CHLORIDE RIDER 10 MEQ in PREMIX 1 EACH IV PRN (06:18)
[2018-09-16] MEDS: predniSONE 20 MG TABLET PO SCH (09:22)
[2018-09-16] MEDS: PANTOPRAZOLE 40 MG TABLET PO SCH (09:22)
[2018-09-16] MEDS: ASPIRIN EC 325 MG TABLET PO SCH (09:23)
[2018-09-16] MEDS: FUROSEMIDE 40 MG TABLET PO SCH (09:23)
[2018-09-16] MEDS: CARVEDILOL 3.125 MG TABLET PO SCH ×2 (09:23→21:53)
[2018-09-16] MEDS: CHLORHEXIDINE 0.12% ORAL RINSE 60 ML BOTTLE SWISH/SPIT SCH ×2 (09:25→21:56)
[2018-09-16] MEDS: NICOTINE 21 MG/24 HR PATCH TRANSDERM SCH (09:29)
[2018-09-16] MEDS: SACUBITRIL/VALSARTAN 49-51 MG TABLET PO SCH ×2 (09:35→21:53)
[2018-09-16] MEDS: INSULIN GLARGINE 100 UNIT/ML SUBCUT SCH (09:40)
[2018-09-16] MEDS: INSULIN LISPRO 100 UNIT/ML SUBCUT SCH ×4 (09:42→21:56)
[2018-09-16] MEDS: SPIRONOLACTONE 25 MG TABLET PO SCH (10:23)
[2018-09-16] MEDS: CLOPIDOGREL 75 MG TABLET PO SCH (10:24)
[2018-09-16] MEDS ORDERED: PNEUMOCOCCAL VACCINE (23 VALENT) 0.5 ML VIAL IM ONE (14:00)
[2018-09-16] MEDS: ATORVASTATIN 80 MG TABLET PO SCH (21:53)
[2018-09-17] MEDS: ALBUTEROL/IPRATROPIUM 3 ML NEB RESP TX SCH ×4 (01:36→19:23)
[2018-09-17 04:58] LABS: Basophils # 0.1 10*3/uL (0.0-0.2); Basophils % 0.5 % (0.0-0.8); Eosinophils # 0.1 10*3/uL (0.0-0.87); Eosinophils % 0.9 % (0.00-10.9); Hematocrit 37.6 VOL% (42.0-52.0); Hemoglobin 12.2 GM/DL (14.0-18.0); Immature Granulocytes % 4.7 %; Lymphocytes # 2.6 10*3/uL (1.4-4.0); Lymphocytes % 20.8 % (21.2-54.2); Mean Corpuscular HGB Conc 32.4 GM/DL (32-36); Mean Corpuscular Volume 88.7 FL (87-102); Mean Platelet Volume 11.9 FL (9.6-12.0); Monocytes % 6.8 % (1.7-12.7); Neutrophils % 66.3 % (38.7-73.9); Platelet Count 295 T/CUMM (130-400); Red Blood Count 4.24 MC/CUMM (3.8-5.5); Red Cell Distribution Width 14.6 % (9.3-17.3); White Blood Count 12.7 T/CUMM (4-12)
[2018-09-17 05:20] LABS: Calcium 8.2 MG/DL (8.5-10.1); Osmolality,Calculated 280.5 MOS/KG (273-304)
[2018-09-17 05:24] LABS: Band Neutrophils 1 % (0-10); Eosinophils 2 % (0-10); Lymphocytes 16 % (20-55); Platelet Estimate Normal; Segmented Neutrophils 80 % (50-85); Total Cells Counted 100
[2018-09-17 05:25] LABS: Polychromasia Few
[2018-09-17] MEDS: POTASSIUM CHLORIDE RIDER 10 MEQ in PREMIX 1 EACH IV PRN (06:28)
[2018-09-17] MEDS: ASPIRIN EC 325 MG TABLET PO SCH (08:36)
[2018-09-17] MEDS: PANTOPRAZOLE 40 MG TABLET PO SCH (08:36)
[2018-09-17] MEDS: CARVEDILOL 3.125 MG TABLET PO SCH ×2 (08:36→21:00)
[2018-09-17] MEDS: FUROSEMIDE 40 MG TABLET PO SCH (08:36)
[2018-09-17] MEDS: CLOPIDOGREL 75 MG TABLET PO SCH (08:37)
[2018-09-17] MEDS: predniSONE 20 MG TABLET PO SCH (08:37)
[2018-09-17] MEDS: SPIRONOLACTONE 25 MG TABLET PO SCH (08:37)
[2018-09-17] MEDS: INSULIN GLARGINE 100 UNIT/ML SUBCUT SCH (08:39)
[2018-09-17] MEDS: NICOTINE 21 MG/24 HR PATCH TRANSDERM SCH (08:39)
[2018-09-17] MEDS: INSULIN LISPRO 100 UNIT/ML SUBCUT SCH ×4 (08:47→21:00)
[2018-09-17] MEDS: SACUBITRIL/VALSARTAN 49-51 MG TABLET PO SCH ×2 (08:51→21:00)
[2018-09-17] MEDS: CHLORHEXIDINE 0.12% ORAL RINSE 60 ML BOTTLE SWISH/SPIT SCH ×2 (08:54→21:01)
[2018-09-17] MEDS: MORPHINE 10 MG/1 ML VIAL IV PRN (20:59)
[2018-09-17] MEDS: ATORVASTATIN 80 MG TABLET PO SCH (21:01)
[2018-09-18] MEDS: ALBUTEROL/IPRATROPIUM 3 ML NEB RESP TX SCH ×3 (00:33→13:54)
[2018-09-18] MEDS: POTASSIUM CHLORIDE RIDER 10 MEQ in PREMIX 1 EACH IV PRN ×2 (02:28→03:34)
[2018-09-18] MEDS: INSULIN LISPRO 100 UNIT/ML SUBCUT SCH ×2 (07:43→13:32)
[2018-09-18] MEDS: SPIRONOLACTONE 25 MG TABLET PO SCH (09:41)
[2018-09-18] MEDS: ASPIRIN EC 325 MG TABLET PO SCH (09:42)
[2018-09-18] MEDS: INSULIN GLARGINE 100 UNIT/ML SUBCUT SCH (09:42)
[2018-09-18] MEDS: SACUBITRIL/VALSARTAN 49-51 MG TABLET PO SCH (09:42)
[2018-09-18] MEDS: CARVEDILOL 3.125 MG TABLET PO SCH (09:42)
[2018-09-18] MEDS: NICOTINE 21 MG/24 HR PATCH TRANSDERM SCH (09:43)
[2018-09-18] MEDS: FUROSEMIDE 40 MG TABLET PO SCH (09:43)
[2018-09-18] MEDS: predniSONE 20 MG TABLET PO SCH (09:44)
[2018-09-18] MEDS: CLOPIDOGREL 75 MG TABLET PO SCH (09:44)
[2018-09-18] MEDS: CHLORHEXIDINE 0.12% ORAL RINSE 60 ML BOTTLE SWISH/SPIT SCH (09:44)
[2018-09-18] MEDS: PANTOPRAZOLE 40 MG TABLET PO SCH (09:45)
[2018-09-18 12:00] VITALS: BP 105/64
== END 2018-09-18 14:58 | disposition home health service (06) | DRG 236 ==
LOC: N.SDSINP 05:15 → N.CVR 08:59 → N.ICU 09-11 09:17 → N.TELES 09-13 17:47
PROVIDERS: ADMIT Thoracic Surgery (Cardiothoracic Vascular Surgery); ATTEND Thoracic Surgery (Cardiothoracic Vascular Surgery)